=== PATIENT | female | born 1985 | race American Indian/Alaskan Native ===

== ENCOUNTER 2019-06-27 19:45 | Emergency (ER) | payer MEDICAID ==
[2019-06-27] MEDS ORDERED: IBUPROFEN 600 MG TAB PO ONE ×2 (20:32→20:36)
--- NOTE | 2019-06-27 20:32 | Emergency Department Report ---
Blank Doc - Documentation Documentation: 33-year-old female that presents with URI symptoms. This initial assessment/diagnostic orders/clinical plan/treatment(s) is/are subject to change based on patient's health status, clinical progression and re- assessment by fellow clinical providers in the ED. Further treatment and workup at subsequent clinical providers discretion. Patient/guardians urged not to elope from the ED as their condition may be serious if not clinically assessed and managed. Initial orders include: 1- Patient sent to [facility] for further evaluation and treatment 2- Motrin 3- CXR
[2019-06-27 20:34] VITALS: BP 148/90
[2019-06-27] MEDS ORDERED: IPRATROPIUM/ALBUTEROL SULFATE 3 ML AMPUL.NEB IH ONE ×2 (20:48→21:29)
[2019-06-27] MEDS ORDERED: AZITHROMYCIN 250 MG TAB PO ONE (21:16)
[2019-06-27] MEDS ORDERED: BENZONATATE 100 MG CAP PO ONE (21:16)
[2019-06-27] MEDS ORDERED: predniSONE 20 MG TAB PO ONE (21:16)
--- NOTE | 2019-06-27 21:24 | XRay Report ---
CHEST 2 VIEWS INDICATION / CLINICAL INFORMATION: cough. COMPARISON: None available. FINDINGS: SUPPORT DEVICES: None. HEART / MEDIASTINUM: No significant abnormality. LUNGS / PLEURA: No significant pulmonary or pleural abnormality. No pneumothorax. ADDITIONAL FINDINGS: No significant additional findings. IMPRESSION: 1. No acute findings. Signer Name: Roger Lind MD Signed: 06/27/2019 9:20 PM Workstation Name: [id number]
--- NOTE | 2019-06-27 21:46 | Emergency Department Report ---
- General Chief Complaint: Upper Respiratory Infection Stated Complaint: PRODUCTIVE COUGH, SOB, VOMITTING, HEADACHES Time Seen by Provider: 06/27/19 20:31 Source: patient Mode of arrival: Ambulatory Limitations: No Limitations - History of Present Illness Initial Comments: 33 year-old female with a past medical history of asthma and hypertension presents to the hospital complaints of cough 2 days. Cough is productive. Patient of several episodes of posttussive vomitus. She complains of significant wheezing and shortness of breath with tightness across chest. She denies fever but has a temp of 100.0 here. She is using an albuterol inhaler and her [employer] nebulizer machine as needed. Decreased appetite reported. Patient denies previous history of intubations or current tobacco use. - Related Data Home Medications Medication Instructions Recorded Confirmed Last Taken Albuterol *Only Ed* [Proventil 2.5 mg IH Q4H PRN 07/29/14 07/29/14 07/29/14 06:30 0.5% NEBS] 1 Vits62/FA/Om3/Dha/Epa 1 each PO DAILY 07/29/14 07/29/14 07/28/14 09:00 [[facility]] 1 Previous Rx's Medication Instructions Recorded Last Taken Type Labetalol [Labetalol 100mg TAB] 100 mg PO BID #60 tablet 08/01/14 Unknown Rx oxyCODONE /ACETAMINOPHEN [Percocet 2 tab PO Q4H PRN #30 tablet 08/01/14 Unknown Rx 5/325 mg] Cyclobenzaprine [Flexeril 10 MG 10 mg PO TID PRN #20 tablet 05/03/15 Unknown Rx TAB] HYDROcodone/APAP 5-325 [[place] 2 each PO Q4HR PRN #20 tablet 05/03/15 Unknown Rx 5-325 mg TAB] Amoxicillin [Amoxicillin TAB] 875 mg PO BID #20 tablet 04/19/19 Unknown Rx Ibuprofen [Motrin 600 MG tab] 600 mg PO Q6H PRN #30 tablet 04/19/19 Unknown Rx ALBUTEROL Inhaler (OR & NICU) 2 puff IH QID PRN #1 inhalation 06/28/19 Unknown Rx [ProAir HFA Inhaler] ALBUTEROL NEB's [Proventil 0.083% 2.5 mg IH TID PRN #30 neb 06/28/19 Unknown Rx NEBS] Azithromycin [Zithromax TAB] 250 mg PO QDAY #4 tablet 06/28/19 Unknown Rx Benzonatate [Tessalon Perles] 100 mg PO Q8HR PRN #20 capsule 06/28/19 Unknown Rx HYDROcodone/APAP 5-325 [[place] 1 each PO Q6HR PRN #15 tablet 06/28/19 Unknown Rx 5/325] Ibuprofen [Motrin] 800 mg PO Q8HR PRN #20 tablet 06/28/19 Unknown Rx Prednisone [predniSONE 10 mg 10 mg PO .TAPER #1 tab.ds.pk 06/28/19 Unknown Rx (6-Day Pack, 21 Tabs)] Allergies Allergy/AdvReac Type Severity Reaction Status Date / Time dust Allergy Hives Uncoded 04/19/19 10:33 ED Review of Systems ROS: Stated complaint: PRODUCTIVE COUGH, SOB, VOMITTING, HEADACHES Other details as noted in HPI Comment: All other systems reviewed and negative ED Past Medical Hx - Past Medical History Hx Hypertension: Yes Hx Heart Attack/AMI: No Hx Congestive Heart Failure: No Hx Diabetes: No Hx Deep Vein Thrombosis: No Hx Liver Disease: No Hx Renal Disease: No Hx Sickle Cell Disease: No Hx Seizures: No Hx Asthma: Yes (uses inhaler and nebulizer. no hospitalizations) Hx COPD: No Hx HIV: No - Social History Smoking Status: Never Smoker Substance Use Type: None - Medications Home Medications: Home Medications Medication Instructions Recorded Confirmed Last Taken Type Albuterol *Only Ed* [Proventil 2.5 mg IH Q4H PRN 07/29/14 07/29/14 07/29/14 06:30 History 0.5% NEBS] 1 Vits62/FA/Om3/Dha/Epa 1 each PO DAILY 07/29/14 07/29/14 07/28/14 09:00 History [[facility]] 1 Labetalol [Labetalol 100mg TAB] 100 mg PO BID #60 tablet 08/01/14 Unknown Rx oxyCODONE /ACETAMINOPHEN [Percocet 2 tab PO Q4H PRN #30 tablet 08/01/14 Unknown Rx 5/325 mg] Cyclobenzaprine [Flexeril 10 MG 10 mg PO TID PRN #20 tablet 05/03/15 Unknown Rx TAB] HYDROcodone/APAP 5-325 [[place] 2 each PO Q4HR PRN #20 tablet 05/03/15 Unknown Rx 5-325 mg TAB] Amoxicillin [Amoxicillin TAB] 875 mg PO BID #20 tablet 04/19/19 Unknown Rx Ibuprofen [Motrin 600 MG tab] 600 mg PO Q6H PRN #30 tablet 04/19/19 Unknown Rx ALBUTEROL Inhaler (OR & NICU) 2 puff IH QID PRN #1 inhalation 06/28/19 Unknown Rx [ProAir HFA Inhaler] ALBUTEROL NEB's [Proventil 0.083% 2.5 mg IH TID PRN #30 neb 06/28/19 Unknown Rx NEBS] Azithromycin [Zithromax TAB] 250 mg PO QDAY #4 tablet 06/28/19 Unknown Rx Benzonatate [Tessalon Perles] 100 mg PO Q8HR PRN #20 capsule 06/28/19 Unknown Rx HYDROcodone/APAP 5-325 [[place] 1 each PO Q6HR PRN #15 tablet 06/28/19 Unknown Rx 5/325] Ibuprofen [Motrin] 800 mg PO Q8HR PRN #20 tablet 06/28/19 Unknown Rx Prednisone [predniSONE 10 mg 10 mg PO .TAPER #1 tab.ds.pk 06/28/19 Unknown Rx (6-Day Pack, 21 Tabs)] ED Physical Exam - General Limitations: No Limitations - Other Other exam information: Gen.: No acute distress Head: Atraumatic Eyes: Normal appearance ENT: Moist mucous membranes Neck: Normal appearance, no posterior midline tenderness, no meningismus Chest: Frequent dry cough, bilateral wheezing Cardiovascular: Tachycardic regular rhythm Abdomen: Normal appearance, soft, nontender, no rebound or guarding, normal bowel sounds Back: Normal appearance, nontender Extremity: Full range of motion, normal appearance, no calf tenderness or edema Neuro: Alert, clear speech, no focal motor or sensory deficit Psychiatric: Appropriate Skin: No rash ED Course Vital Signs 06/27/19 06/27/19 06/27/19 20:31 20:50 21:16 Temperature 100.0 F H Pulse Rate 121 H Pulse Rate [ 101 H Anterior Bilateral Throughout] Respiratory 16 18 Rate Respiratory 18 Rate [Anterior Bilateral Throughout] Blood Pressure 148/90 O2 Sat by Pulse 98 Oximetry ED Medical Decision Making - Radiology Data Radiology results: report reviewed CHEST 2 VIEWS INDICATION / CLINICAL INFORMATION: cough. COMPARISON: None available. FINDINGS: SUPPORT DEVICES: None. HEART / MEDIASTINUM: No significant abnormality. LUNGS / PLEURA: No significant pulmonary or pleural abnormality. No pneumothorax. ADDITIONAL FINDINGS: No significant additional findings. IMPRESSION: 1. No acute findings. - Medical Decision Making Patient feels better after ED treatment. Wheezing improved. Tachycardia also improved. Initially with steroids, nebs, Tessalon Perles, and will be discharged on meds for home for acute bronchitis with wheezing - Differential Diagnosis asthma, bronchitis, pneumonia, viral syndrome Critical Care Time: No Critical care attestation.: If time is entered above; I have spent that time in minutes in the direct care of this critically ill patient, excluding procedure time. ED Disposition Clinical Impression: Acute bronchitis with asthma Disposition: TO HOME OR SELFCARE Is pt being admited?: No Does the pt Need Aspirin: No Condition: Stable Instructions: Acute Bronchitis (ED) Additional Instructions: Take the medication as prescribed. Follow-up with your doctor or with the doctor/clinic provided. Return if symptoms worsen as indicated by your discharge instructions. Prescriptions: Ibuprofen [Motrin] 800 mg PO Q8HR PRN #20 tablet PRN Reason: Pain, Moderate (4-6) HYDROcodone/APAP 5-325 [[place] 5/325] 1 each PO Q6HR PRN #15 tablet PRN Reason: Pain Prednisone [predniSONE 10 mg (6-Day Pack, 21 Tabs)] 10 mg PO .TAPER #1 tab.ds.pk ALBUTEROL Inhaler (OR & NICU) [ProAir HFA Inhaler] 2 puff IH QID PRN #1 inhalation PRN Reason: Shortness Of Breath ALBUTEROL NEB's [Proventil 0.083% NEBS] 2.5 mg IH TID PRN #30 neb PRN Reason: Wheezing Benzonatate [Tessalon Perles] 100 mg PO Q8HR PRN #20 capsule PRN Reason: Cough Azithromycin [Zithromax TAB] 250 mg PO QDAY #4 tablet Referrals: JONATHAN CARNES MD [Primary Care Provider] - 3-5 Days Time of Disposition: 00:42
[2019-06-27] MEDS ORDERED: ONDANSETRON 4 MG ODT TAB PO ONE (22:31)
== END 2019-06-28 01:55 | disposition home or self-care (01) ==
LOC: ED 19:45
DX: J20.9 Acute bronchitis, unspecified (principal); I10 Essential (primary) hypertension; J45.909 Unspecified asthma, uncomplicated; Z79.899 Other long term (current) drug therapy; Z91.048 Other nonmedicinal substance allergy status
CPT/HCPCS: 71046; 94640; 99283; J7512; 94644; Q0162

== ENCOUNTER 2022-06-20 15:06 | Emergency (ER) | payer MEDICAID | END 2022-06-20 16:30 | disposition left against medical advice (07) | LOC: ED 15:06 | DX: Z20.828 Contact with and (suspected) exposure to other viral communicable diseases (principal); Z53.21 Procedure and treatment not carried out due to patient leaving prior to being seen by health care provider ==